=== PATIENT | female | born 1990 | race African-American/Black ===

== ENCOUNTER 2019-05-12 17:33 | Emergency (ER) | payer MEDICARE, OTHER ==
[~2019-05-12] VITALS: Ht 165.1 cm; Wt 86.0 kg
[2019-05-12 17:39] VITALS: BP 106/65
== END 2019-05-12 19:30 | disposition left against medical advice (07) ==
LOC: ER 17:33
DX: Z53.21 Procedure and treatment not carried out due to patient leaving prior to being seen by health care provider (principal); Z88.3 Allergy status to other anti-infective agents

== ENCOUNTER 2024-09-30 10:03 | Emergency (ER) | payer MEDICAID, MEDICARE ==
[~2024-09-30] VITALS: Ht 170.2 cm; Wt 118.0 kg
[2024-09-30 10:22] VITALS: O2SAT 97
[2024-09-30] MEDS: LIDOCAINE HCL 1% 20ML VIAL INFIL ONE (11:15)
[2024-09-30] MEDS: IBUPROFEN 600MG TABLET PO ONE (12:44)
[2024-09-30 13:20] VITALS: BP 132/70; PULSE 84; RESP 18; TEMP 36.78072; O2SAT 97
[2024-09-30] MEDS: TETANUS, DIPHTHERIA, PERTUSSIS VAC/PF 0.5ML (>10YR OLD) IM ONE (13:20)
== END 2024-09-30 13:24 | disposition home or self-care (01) ==
LOC: ER 10:13
DX: S61.411A Laceration without foreign body of right hand, initial encounter (principal); Z88.0 Allergy status to penicillin; Z98.890 Other specified postprocedural states; W45.8XXA Other foreign body or object entering through skin, initial encounter; Y93.89 Activity, other specified; Y92.89 Other specified places as the place of occurrence of the external cause; Y99.8 Other external cause status
CPT/HCPCS: 73130; 90715; 12001; 90471; 99283; J3490; Z7610 ×2

== ENCOUNTER 2024-10-17 07:03 | Emergency (ER) | payer MEDICAID ==
[~2024-10-17] VITALS: Ht 160 cm; Wt 126.5 kg
[2024-10-17 07:11] VITALS: O2SAT 100
[2024-10-17 07:21] VITALS: BP 154/94; PULSE 100; RESP 17; TEMP 98.9; O2SAT 88
== END 2024-10-17 09:16 | disposition home or self-care (01) ==
LOC: ER 07:12
DX: S61.411D Laceration without foreign body of right hand, subsequent encounter (principal); Z88.0 Allergy status to penicillin; Z98.890 Other specified postprocedural states; X58.XXXD Exposure to other specified factors, subsequent encounter
CPT/HCPCS: 99281